=== PATIENT | female | born 1960 | race Caucasian/White ===

== ENCOUNTER 2019-11-26 20:48 | Emergency (ER) | payer BC ==
[2019-11-26] MEDS ORDERED: Lidocaine 1% 30 ML SDV SUBCUT ONE (21:10)
--- NOTE | 2019-11-26 21:26 | EDM.PDOC ---
ED HPI GENERAL MEDICAL PROBLEM - General Chief Complaint: Skin Complaint Stated Complaint: MIDDLE FINGER LEFT HAND, FISH HOOK STUCK Time Seen by Provider: 11/26/19 21:22 Source of Information: Reports: Patient History Limitations: Reports: No Limitations - History of Present Illness INITIAL COMMENTS - FREE TEXT/NARRATIVE: fishhook in left middle finger Left Finger-Middle Pain Score (Numeric/FACES): 8 - Related Data Allergies Allergy/AdvReac Type Severity Reaction Status Date / Time No Known Allergies Allergy Verified 11/26/19 21:17 Past Medical History Other Gastrointestinal History: Acid Reflux Psychiatric History: Reports: Depression - Past Surgical History GI Surgical History: Reports: Appendectomy, Cholecystectomy Social & Family History - Family History Family Medical History: Noncontributory - Tobacco Use Smoking Status *Q: Never Smoker Second Hand Smoke Exposure: No - Caffeine Use Caffeine Use: Reports: Coffee - Recreational Drug Use Recreational Drug Use: No ED ROS GENERAL - Review of Systems Review Of Systems: Comprehensive ROS is negative, except as noted in HPI. ED EXAM, SKIN/RASH Exam: See Below Exam Limited By: No Limitations General Appearance: Alert, WD/WN, Mild Distress, Other (discomfort) Ears: Hearing Grossly Normal Throat/Mouth: Normal Voice, No Airway Compromise Head: Atraumatic Neck: Non-Tender, Full Range of Motion Respiratory/Chest: No Respiratory Distress Cardiovascular: Regular Rate, Rhythm GI/Abdominal: Soft, Non-Tender Extremities: Other (left middle fishhook, NV wnl, tender R/P) Neurological: Alert, Oriented, Normal Cognition, Normal Gait, No Motor/Sensory Deficits Psychiatric: Normal Affect, Normal Mood Skin: Warm, Dry, Normal Color Location, Skin: Upper Extremity, Left ED SKIN PROCEDURES - Foreign Body Removal Consent Obtained:: Patient - Additional/Other Procedure(s) Other (Free Text) Procedure(s): 1) area cleansed with betadine 2) local lido plain 3) spfl incision with #11 4) hook removed without problem 5) bandaid applied Course - Vital Signs Last Recorded V/S: Last Vital Signs Temp 36.8 C 11/26/19 21:09 Pulse 76 11/26/19 21:09 Resp 18 11/26/19 21:09 BP 120/70 11/26/19 21:09 Pulse Ox 99 11/26/19 21:09 - Orders/Labs/Meds Meds: Medications Discontinued Medications Generic Name Dose Route Start Last Admin Trade Name Bria PRN Reason Stop Dose Admin Lidocaine HCl 2 ml 11/26/19 21:10 11/26/19 21:18 Xylocaine-Mpf 1% SUBCUT 11/26/19 21:11 2 ml ONETIME ONE Administration Departure - Departure Time of Disposition: 21:25 Disposition: Home, Self-Care 01 Condition: Good Clinical Impression: [place] injury to finger Qualifiers: Encounter type: initial encounter Laterality: left Qualified Code(s): S69.92XA - Unspecified injury of left wrist, hand and finger(s), initial encounter - Discharge Information Additional Instructions: 1) keep wound clean dry covered 2) recheck if looks infected Sepsis Event Note - Evaluation Sepsis Screening Result: No Definite Risk - Focused Exam Vital Signs: Vital Signs Temp Pulse Resp BP Pulse Ox 11/26/19 21:09 36.8 C 76 18 120/70 99 Date Exam was Performed: 11/26/19 Time Exam was Performed: 21:22
== END 2019-11-26 21:29 | disposition home or self-care (01) ==
LOC: DL.ED 20:48
DX: S60.453A Superficial foreign body of left middle finger, initial encounter (principal); W45.8XXA Other foreign body or object entering through skin, initial encounter
CPT/HCPCS: 10120; 99283; J2001